=== PATIENT | female | born 1980 | race Caucasian/White ===

== ENCOUNTER 2018-08-17 04:53 | Emergency (ER) | payer BC, OTHER ==
[~2018-08-17] VITALS: Ht 165.1 cm; Wt 105.7 kg
[~2018-08-17 04:53] MED LIST: BACTRIM DS TAB1 EACH PO; METFORMIN HCL500 MG PO; PIOGLITAZONE15 MG
[2018-08-17] MEDS ORDERED: VALIUM5 MG PO (05:56)
[2018-08-17] MEDS ORDERED: MOBIC15 MG PO (05:56)
[2018-08-17] MEDS ORDERED: ULTRAM 50MG TAB50 MG PO (05:56)
[2018-08-17 06:03] VITALS: BP 106/53
== END 2018-08-17 06:03 | disposition home or self-care (01) ==
LOC: ER 04:53
DX: S39.012A Strain of muscle, fascia and tendon of lower back, initial encounter (principal); J45.909 Unspecified asthma, uncomplicated; Z98.890 Other specified postprocedural states; Z88.6 Allergy status to analgesic agent; X58.XXXA Exposure to other specified factors, initial encounter; Y93.89 Activity, other specified; Y92.89 Other specified places as the place of occurrence of the external cause; Y99.8 Other external cause status

== ENCOUNTER 2018-09-01 12:44 | Emergency (ER) | payer BC, OTHER ==
[~2018-09-01] VITALS: Ht 165.1 cm; Wt 104.8 kg
[~2018-09-01 12:44] MED LIST changes: +MOBIC15 MG PO; +ULTRAM 50MG TAB50 MG PO; +VALIUM5 MG PO
[2018-09-01] MEDS ORDERED: NORFLEX100 MG PO (13:56)
[2018-09-01] MEDS ORDERED: PREDNISONE 10 M10 MG PO (13:56)
[2018-09-01 14:24] VITALS: BP 115/74
== END 2018-09-01 14:20 | disposition home or self-care (01) ==
LOC: ER 12:44
DX: S39.012A Strain of muscle, fascia and tendon of lower back, initial encounter (principal); M54.41 Lumbago with sciatica, right side; M54.42 Lumbago with sciatica, left side; J45.909 Unspecified asthma, uncomplicated; E28.2 Polycystic ovarian syndrome; Z98.890 Other specified postprocedural states; Z90.89 Acquired absence of other organs; Z88.6 Allergy status to analgesic agent; X50.0XXA Overexertion from strenuous movement or load, initial encounter; Y92.89 Other specified places as the place of occurrence of the external cause; Y99.0 Civilian activity done for income or pay; Y99.8 Other external cause status

== ENCOUNTER 2019-01-19 17:49 | Emergency (ER) | payer BC, OTHER ==
[~2019-01-19] VITALS: Ht 165.1 cm; Wt 106.6 kg
[~2019-01-19 17:49] MED LIST changes: +NORFLEX100 MG PO; +PREDNISONE 10 M10 MG PO
[2019-01-19 18:31] LABS: URINE BILIRUBIN NEGATIVE (Negative); URINE BLOOD TRACE (Negative); URINE CLARITY CLEAR; URINE COLOR YELLOW; URINE GLUCOSE-RANDOM* NEGATIVE (Negative); URINE KETONES NEGATIVE (Negative); URINE NITRITE-REFLEX NEGATIVE (Negative); URINE PROTEIN (DIPSTICK) TRACE (Negative); URINE UROBILINOGEN 0.2 E.U./dl (0.2-1.0)
[2019-01-19 18:33] LABS: URINE LEUKOCYTES-REFLEX 3+ (Negative)
[2019-01-19 18:45] LABS: SQUAMOUS >10 Many /LPF (0-3)
[2019-01-19 18:46] LABS: URINE RBC 3-10 Few /HPF (0-2); URINE WBC-REFLEX >25 Many /HPF (0-5)
[2019-01-19 18:47] LABS: AMORPHOUS URATES Few /LPF (None Seen); CASTS None Seen /LPF (None Seen)
[2019-01-19] MEDS ORDERED: FLAGYL500 M1 PO (20:55)
[2019-01-19] MEDS ORDERED: KEFLEX500 M1 PO (20:55)
[2019-01-19 21:01] VITALS: BP 113/69
== END 2019-01-19 21:08 | disposition home or self-care (01) ==
LOC: ER 17:49
PROVIDERS: Physician Assistant
DX: G89.29 Other chronic pain (principal); M54.5 Low back pain; A59.01 Trichomonal vulvovaginitis; N39.0 Urinary tract infection, site not specified; J45.909 Unspecified asthma, uncomplicated; Z98.890 Other specified postprocedural states; Z88.6 Allergy status to analgesic agent